=== PATIENT | female | born 1980 | race Caucasian/White ===

== ENCOUNTER 2017-10-18 15:30 | Outpatient (RCR) | payer BC ==
[2015-12-19 12:13] VITALS: Ht 165.1 cm; Wt 64.0 kg
[2017-07-26 15:44] VITALS: BP 108/76
[2017-07-26 15:44] LABS: PLATELET COUNT, AUTOMATED 241 K/uL (150-450)
[2017-08-02 16:06] VITALS: BP 115/78
--- NOTE | 2017-08-02 23:08 | ONCOLOGY FOLLOW UP NOTE ---
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 INTERIM HISTORY Leanna returns to clinic for a follow-up visit today. She reports that things having going quite well since our last visit. She has been working hard, staying active, eating well, and generally thriving. She reports no significant pain today. She denies fever. She has had no shortness of breath, chest pain, or cough. Her appetite is quite good, and her weight has been stable. She does admit that she may have gained a couple of pounds over the break. She does report that at times she has been massaging the abdominal incision, and there are times where if she "presses deep" she will feel some pain. She has noticed no masses. She has had no changes in her bowel habits. REVIEW OF SYSTEMS Otherwise negative, and all systems were reviewed. ONCOLOGY HISTORY 1. 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 a. Initial presentation with dysfunctional uterine bleeding after having had a healthy baby girl about one year prior. b. Patient was noted to have palpable pelvic mass on physical exam. c. November 04, 2016: CT scan of pelvis reveals an amorphous, ill defined, multiseptated cystic mass within the right adnexa, likely arising from the right ovary. This was initially felt to potentially represent a complex endometrioma. Surgery was recommended. d. Patient was referred to Dr. Mady Donovan at [facility] in [place]. e. November 23, 2016: Surgical resection. 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 Omentectomy specimen is negative for malignancy. Peritoneal biopsies to include right pelvic, left pelvic, anterior cul-de-sac, posterior cul-de-sac, right gutter and left gutter were negative for malignancy. There was biopsy of a left ovarian cyst that was benign. Left salpingectomy showed benign findings. Hysterectomy specimen showed chronic cervicitis and squamous metaplasia of the cervix, benign proliferative endometrium, and no pathologic findings in the myometrium. Six benign lymph nodes were dissected from the right pelvis, two benign lymph nodes were dissected from the periaortic region, and four benign lymph nodes were resected from the left pelvis. f. December 2016 to February 2017: Three cycles of adjuvant BEP chemotherapy. g. April 26, 2017: CT scan of the abdomen and pelvis reveals post surgical changes from hysterectomy and apparent right oophorectomy; very small amount of free pelvic fluid. Shotty retroperitoneal lymph nodes and small bilateral inguinal lymph nodes. PAST MEDICAL HISTORY The patient is otherwise healthy. SOCIAL HISTORY The patient is a nonsmoker, nondrinker. There is no history of illicit drug use. FAMILY HISTORY There is a history of vulvar carcinoma in her maternal aunt, as well as breast cancer in another maternal aunt. She believes this had been diagnosed about age 51. CURRENT MEDICATIONS 1. Iron sulfate. 2. Vitamin D3. 3. Flonase p.r.n. 4. Vitamin B6. ALLERGIES 1. PENICILLINS. 2. CEFACLOR. VITAL SIGNS Temperature is 98.3, blood pressure 115/78, heart rate is 80, respirations 16, oxygen saturation is 92% on room air. Weight is 65.2 kg. PHYSICAL EXAMINATION GENERAL: Patient is alert and oriented times three, in no apparent distress sitting in the exam room chair. She appears quite healthy. She is interactive , pleasant, and in excellent spirits. HEENT: Exam reveals anicteric sclerae. NEUROLOGIC: Exam is grossly nonfocal and her gait is normal. EXTREMITIES: Exam reveals no edema, clubbing or cyanosis. There ABDOMEN: Exam reveals no significant tenderness to palpation, no organomegaly, and no palpable masses. There is no fluid wave. LABORATORY STUDIES Reviewed per the [facility] record. ASSESSMENT AND PLAN 1. 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 Leanna is doing remarkably well. She has minimal symptoms today. She does have some very mild lingering peripheral neuropathy, but alternative therapies have been healing a great deal with this. She has no concerning signs or symptoms to suggest recurrence of her granulosa cell tumor. We reviewed her labs today. These are normal, including her estradiol and inhibin A and B levels. This is encouraging. As discussed today, we will continue to follow her with no plans for imaging unless new signs or symptoms arise to suggest the need. She will follow up with me in three months after repeat labs, to include tumor markers. 2. History of iron deficiency anemia. She continues to take iron sulfate. I have recommended that she go to the lab today to have repeat iron studies drawn. If she is iron replete she can stop her iron. I will be back in touch with her with the results of her labs. 3. Genetic counseling. Ivalene did have a visit with Joanne Tadeo, genetic counselor at the [facility]. Her genetic testing was unremarkable. She does have questions about reimbursement for some of the testing which was quite expensive. I have asked her to call Joanne to call this further, and if I can be of any assistance, I would be more than happy to help. WENDIE
[2017-10-16 13:17] VITALS: BP 124/77
[2017-10-16 13:22] LABS: PLATELET COUNT, AUTOMATED 249 K/uL (150-450)
[~2017-10-18] VITALS: Ht 165.1 cm; Wt 64.0 kg
[~2017-10-18 15:30] MED LIST: ACET-1718 PO; CHOL10005 PO; DEX4 PO; DOCU50LI29 PO; FERR-53 PO; FLUT16SP19 NS; IBUP800T37 PO; LEVO-85 PO; LORA-1455 PO; MULT-1335 PO; ONDA8TAB94 PO; PREN-127 PO; PROC10TA4 PO; PYRI100T57 PO
[2017-10-18 15:52] VITALS: BP 116/76
--- NOTE | 2017-10-19 17:29 | ONCOLOGY FOLLOW UP NOTE ---
EVENT DATE: October 18, 2017 REASON FOR FOLLOWUP Granulosus tumor of the right ovary. INTERIM HISTORY Leanna returns to clinic for a follow-up visit today. She is accompanied by her daughter. She reports that things are going quite well in general. She has returned to a very busy schedule. She is again playing volleyball, and going to the gym when she can. She reports that her nutrition has not been particularly good because of her busy schedule. She reports no new pain. She has had no changes in bowel habits, and no new urinary symptoms. She has had no shortness of breath, chest pain, or cough. Her appetite is good. She has had labs drawn, and she is here to review the results. REVIEW OF SYSTEMS Otherwise negative, and all systems were reviewed. ONCOLOGY HISTORY 1. 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 a. Initial presentation with dysfunctional uterine bleeding after having had a healthy baby girl about one year prior. b. Patient was noted to have palpable pelvic mass on physical exam. c. November 04, 2016: CT scan of pelvis reveals an amorphous, ill defined, multiseptated cystic mass within the right adnexa, likely arising from the right ovary. This was initially felt to potentially represent a complex endometrioma. Surgery was recommended. d. Patient was referred to Dr. Mady Donovan at [facility] in [place]. e. November 23, 2016: Surgical resection. 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 Omentectomy specimen is negative for malignancy. Peritoneal biopsies to include right pelvic, left pelvic, anterior cul-de-sac, posterior cul-de-sac, right gutter and left gutter were negative for malignancy. There was biopsy of a left ovarian cyst that was benign. Left salpingectomy showed benign findings. Hysterectomy specimen showed chronic cervicitis and squamous metaplasia of the cervix, benign proliferative endometrium, and no pathologic findings in the myometrium. Six benign lymph nodes were dissected from the right pelvis, two benign lymph nodes were dissected from the periaortic region, and four benign lymph nodes were resected from the left pelvis. f. December 2016 to February 2017: Three cycles of adjuvant BEP chemotherapy. g. April 26, 2017: CT scan of the abdomen and pelvis reveals post surgical changes from hysterectomy and apparent right oophorectomy; very small amount of free pelvic fluid. Shotty retroperitoneal lymph nodes and small bilateral inguinal lymph nodes. PAST MEDICAL HISTORY The patient is otherwise healthy. SOCIAL HISTORY The patient is a nonsmoker, nondrinker. There is no history of illicit drug use. FAMILY HISTORY There is a history of vulvar carcinoma in her maternal aunt, as well as breast cancer in another maternal aunt. She believes this had been diagnosed about age 51. CURRENT MEDICATIONS 1. Vitamin D3. 2. Flonase p.r.n. 3. Vitamin B6. ALLERGIES 1. PENICILLINS. 2. CEFACLOR. VITAL SIGNS Temperature is 97.4, blood pressure 116/76, heart rate is 73, respirations 16, oxygen saturation is 96% on room air. Weight is 64 kg. PHYSICAL EXAMINATION GENERAL: Patient is alert and oriented times three, in no apparent distress sitting in the exam room chair. She appears quite healthy. She is interactive and pleasant. HEENT: Exam reveals anicteric sclerae. NEUROLOGIC: Exam is grossly nonfocal and her gait is normal. SKIN: Exam reveals no concerning rash or lesions. She has a new tattoo in the right lower quadrant. LABORATORY STUDIES Reviewed per the [facility] record. ASSESSMENT AND PLAN 1. Granulosus cell tumor of right ovary, status post resection and adjuvant chemotherapy. Ivalene continues to do very well from a symptom standpoint. She has no concerning signs or symptoms to suggest recurrence of her granulosus cell tumor. We spent time today reviewing her laboratory studies, and these are unremarkable, including estradiol. Inhibin levels are currently pending. We also moved on to discuss the importance of regular physical activity, which she seems to be doing quite well concerning her busy schedule. Her nutrition is not particularly good, however, and I have encouraged her to do the best she can in this regard. We discussed our strategy moving forward for followup. We will hold off on additional imaging at this time, for lack of symptoms. I would like to see her back in three months' time after repeat labs to include CBC, CMP, estradiol level, and inhibin A and B. She agrees with this plan. 2. History of iron deficiency anemia. Her labs reveal no evidence of ongoing iron deficiency. She can stop her iron. MTDD
== END 2017-10-24 ==
LOC: ONC 15:30
PROVIDERS: ATTEND Internal Medicine Medical Oncology
DX: Z85.43 Personal history of malignant neoplasm of ovary (principal); Z92.21 Personal history of antineoplastic chemotherapy; G62.9 Polyneuropathy, unspecified; D50.9 Iron deficiency anemia, unspecified
CPT/HCPCS: 36415; 82040; 82247; 82310; 82374; 82435; 82565; 82670; 82728; 82947; 83520; 83540; 83550; 83735; 84075; 84100; 84132; 84155; 84295; 84450; 84460; 84520; 85025; 86336; 99212

== ENCOUNTER 2017-12-31 20:56 | Observation (INO) | payer BC ==
[2015-12-19 12:13] VITALS: Ht 160 cm; Wt 65.0 kg
[~2017-12-31] VITALS: Ht 160 cm; Wt 65.0 kg
--- NOTE | 2017-12-31 21:19 | ER Report ---
History and Physical Time Seen By MD: 21:18 Hx. of Stated Complaint: LLQ pain that started this am, has hx of R ovarian ca and had salpingoopherectomy last summer but did leave L ovary HPI/ROS CHIEF COMPLAINT: abdominal pain HISTORY OF PRESENT ILLNESS: This is a 37 year old female. She is having lower left abdominal pain since earlier this morning. Pain worsens with movement. She had been camping and thought she might just be having pain from bowels being backed up or gas pains. She did have a bowel movement but did not improve the pain. No problems with urination. She has no fevers or chills. 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 Mady Donovan at [facility] and since has completed 3 cycles of BEP. She had a CT scan in April for follow-up which was negative. Denies vomiting, but having some nausea. Pain is severe, rated 8 on a 1-10 scale. Allergies: Coded Allergies: Penicillins (Verified Allergy, Intermediate, HIVES, 12/31/17) REPORTS HAVING BEEN TOLD OF REACTION CHILD, SOMEWHAT UNSURE OF REACTION. amoxicillin (Verified Allergy, Intermediate, HIVES, 12/31/17) cefaclor (Verified Allergy, Intermediate, HIVES, 12/31/17) Home Meds Discontinued Reported Medications Multivitamin With Minerals (MULTIPLE VITAMIN) 1 Each Tablet, 1 EACH PO DAILY, TAB 04/10/17 Cholecalciferol (Vitamin D3) (VITAMIN D3) 1,000 Unit Tablet, 1000 UNIT PO DAILY , TAB 04/10/17 Docusate Sodium (STOOL SOFTENER) 50 Mg/5 Ml Liquid, 50 MG PO PRN 12/14/16 Discontinued Scripts Ferrous Sulfate (FERROUS SULFATE) 325 Mg Tablet, 325 MG PO TID for 30 Days, #90 TAB 3 Refills Prov:TRISH MISHRA-BC, ONC 06/07/17 Fluticasone Prop 50 Mcg Ns (FLONASE 50 MCG NS) 16 Gm [place].susp, 1 SPRAY NS BID for 30 Days, #1 BOT 2 Refills Prov:TRISH MISHRA-BC, ONC 02/27/17 Pyridoxine Hcl (VITAMIN B-6) 100 Mg Tablet, 100 MG PO BID for neuropathy prevention, #60 TAB 4 Refills Prov:TRISH MISHRA-BC, ONC 02/24/17 Prochlorperazine Maleate (Compazine) 10 Mg Tablet, 10 MG PO Q6H for Nausea, #30 TAB Prov:TRISH MISHRA TELECOM ANALYST-BC, ONC 01/30/17 Lorazepam (ATIVAN) 0.5 Mg Tablet, 0.5 MG PO Q4-6H Y for NAUSEA for 30 Days, #30 TAB 0 Refills Prov:TRISH MISHRA TELECOM ANALYST-BC, ONC 12/27/16 Ondansetron (ZOFRAN ODT) 8 Mg Tab.rapdis, 8 MG PO Q8H, #30 TAB 1 Refill Prov:TRISH MISHRA TELECOM ANALYST-BC, ONC 12/27/16 Ibuprofen (IBUPROFEN) 800 Mg Tablet, 1 TAB PO Q8H, #30 TAB Take with food every 8 hours. Prov:BENIGNO LAMBERT MD 12/19/15 Reviewed Nurses Notes: Yes Hx Smoking: No Smoking Status: Never Smoker Exposure to Second Hand Smoke?: No Hx Substance Use Disorder: No Hx Alcohol Use: No Constitutional Vital Sign - Last 24 Hours 12/31/17 12/31/17 12/31/17 12/31/17 20:56 21:05 21:06 21:11 Temp 97.8 Pulse ??? 74 74 Resp 16 B/P (MAP) 130/93 (105) 130/93 Pulse Ox 96 94 12/31/17 12/31/17 12/31/17 12/31/17 21:30 21:41 21:56 22:00 Pulse 66 69 B/P (MAP) 122/83 (96) 114/74 (87) Pulse Ox 95 93 12/31/17 12/31/17 12/31/17 12/31/17 22:05 22:36 22:41 22:56 Pulse 63 65 63 B/P (MAP) 120/81 (94) Pulse Ox 93 90 91 12/31/17 12/31/17 12/31/17 12/31/17 23:00 23:30 23:41 23:46 Pulse 60 62 B/P (MAP) 112/65 (81) 129/84 (99) Pulse Ox 98 98 01/01/18 01/01/18 01/01/18 01/01/18 00:00 00:01 00:06 00:11 Pulse 63 67 72 B/P (MAP) 117/78 (91) Pulse Ox 94 95 01/01/18 01/01/18 01/01/18 01/01/18 00:30 00:56 00:57 01:02 Pulse 74 66 B/P (MAP) 124/80 (95) Pulse Ox 97 97 98 01/01/18 01/01/18 01/01/18 01/01/18 01:07 01:22 01:27 01:30 Pulse 75 78 72 B/P (MAP) 107/58 (74) Pulse Ox 99 95 91 01/01/18 01/01/18 01/01/18 01/01/18 01:42 02:00 02:05 02:17 Pulse 73 64 68 B/P (MAP) 117/82 (94) Pulse Ox 98 99 99 01/01/18 01/01/18 01/01/18 01/01/18 02:22 02:30 02:37 02:42 Pulse 77 66 73 B/P (MAP) 124/83 (97) Pulse Ox 99 92 96 Physical Exam General Appearance: The patient is alert. No acute distress. Eyes: Pupils are equal, round. No pallor, injection or icterus Respiratory: Breathing easily and unlabored. Lungs are clear to auscultation. Cardiovascular: Regular rate and rhythm. No murmurs, gallops or rubs. Normal capillary refill. Gastrointestinal: Abdomen is soft, but very tender in left lower abdomen. Nondistended. Guarding, no rebound. Normal active bowel sounds. No costovertebral angle tenderness with percussion. Neurological: Alert and oriented x3. No focal neurologic deficits in the extremities. Skin: Warm and dry. No rashes. DIFFERENTIAL DIAGNOSIS: After history and physical exam, differential diagnosis was considered for abdominal pain in a female including but not limited to ovarian cyst, pelvic inflammatory disease, ovarian torsion, urinary tract infection, colitis. Medical Decision Making Data Points Result Diagram: 12/31/17214612/31/172146 Laboratory Hematology Test 12/31/17 21:47 12/31/17 22:36 Red Blood Count 5.14 M/uL (4.17-5.56) Mean Corpuscular Volume 85.4 fL (80.0-96.0) Mean Corpuscular Hemoglobin 28.9 pg (26.0-33.0) Mean Corpuscular Hemoglobin Concent 33.9 g/dL (32.0-36.0) Red Cell Distribution Width 13.7 % (11.5-14.5) Mean Platelet Volume 8.6 fL (7.2-11.1) Neutrophils (%) (Auto) 78.1 % (39.4-72.5) Lymphocytes (%) (Auto) 16.0 % (17.6-49.6) Monocytes (%) (Auto) 5.3 % (4.1-12.4) Eosinophils (%) (Auto) 0.2 % (0.4-6.7) Basophils (%) (Auto) 0.4 % (0.3-1.4) Nucleated RBC Relative Count (auto) 0.1 /100WBC Neutrophils # (Auto) 8.9 K/uL (2.0-7.4) Lymphocytes # (Auto) 1.8 K/uL (1.3-3.6) Monocytes # (Auto) 0.6 K/uL (0.3-1.0) Eosinophils # (Auto) 0.0 K/uL (0.0-0.5) Basophils # (Auto) 0.0 K/uL (0.0-0.1) Nucleated RBC Absolute Count (auto) 0.01 K/uL Sodium Level 140 mmol/L (137-145) Potassium Level 3.5 mmol/L (3.5-5.0) Chloride Level 105 mmol/L (98-107) Carbon Dioxide Level 21 mmol/L (22-31) Blood Urea Nitrogen 19 mg/dl (7-18) Creatinine 0.90 mg/dl (0.52-1.04) Glomerular Filtration Rate Calc > 60.0 Random Glucose 137 mg/dl (75-110) Calcium Level 8.9 mg/dl (8.4-10.2) Total Bilirubin 0.2 mg/dl (0.2-1.3) Aspartate Amino Transf (AST/SGOT) 20 U/L (0-35) Alanine Aminotransferase (ALT/SGPT) 20 U/L (0-56) Alkaline Phosphatase 61 U/L (0-126) C-Reactive Protein < 0.5 mg/dl (<1.0) Total Protein 7.6 gm/dl (6.3-8.2) Albumin 4.4 g/dl (3.5-5.0) Amylase Level 89 U/L (0-110) Lipase 81 U/L (23-300) Urine Color Yellow Urine Clarity Slightly-cloudy Urine pH 7.0 pH (4.8-9.5) Urine Specific [place] 1.034 Urine Protein Negative mg/dL (NEGATIVE) Urine Glucose (UA) Negative mg/dL (NEGATIVE) Urine Ketones Negative mg/dL (NEGATIVE) Urine Blood Negative (NEGATIVE) Urine Nitrite Negative (NEGATIVE) Urine Bilirubin Negative (NEGATIVE) Urine Urobilinogen Negative mg/dL (0.2-1.9) Urine Leukocyte Esterase Negative (NEGATIVE) Urine RBC None /HPF (0-2/HPF) Urine WBC None /HPF (0-5/HPF) Urine Squamous Epithelial Cells Few /LPF (</=FEW) Urine Amorphous Crystals Many /HPF Urine Bacteria Negative /HPF (NONE-FEW) Urine Mucus None /HPF (NONE-FEW) Chemistry Test 12/31/17 21:47 12/31/17 22:36 White Blood Count 11.3 k/uL (4.5-11.0) Red Blood Count 5.14 M/uL (4.17-5.56) Hemoglobin 14.9 g/dL (12.0-16.0) Hematocrit 43.8 % (34.0-47.0) Mean Corpuscular Volume 85.4 fL (80.0-96.0) Mean Corpuscular Hemoglobin 28.9 pg (26.0-33.0) Mean Corpuscular Hemoglobin Concent 33.9 g/dL (32.0-36.0) Red Cell Distribution Width 13.7 % (11.5-14.5) Platelet Count 220 K/uL (150-450) Mean Platelet Volume 8.6 fL (7.2-11.1) Neutrophils (%) (Auto) 78.1 % (39.4-72.5) Lymphocytes (%) (Auto) 16.0 % (17.6-49.6) Monocytes (%) (Auto) 5.3 % (4.1-12.4) Eosinophils (%) (Auto) 0.2 % (0.4-6.7) Basophils (%) (Auto) 0.4 % (0.3-1.4) Nucleated RBC Relative Count (auto) 0.1 /100WBC Neutrophils # (Auto) 8.9 K/uL (2.0-7.4) Lymphocytes # (Auto) 1.8 K/uL (1.3-3.6) Monocytes # (Auto) 0.6 K/uL (0.3-1.0) Eosinophils # (Auto) 0.0 K/uL (0.0-0.5) Basophils # (Auto) 0.0 K/uL (0.0-0.1) Nucleated RBC Absolute Count (auto) 0.01 K/uL Glomerular Filtration Rate Calc > 60.0 Calcium Level 8.9 mg/dl (8.4-10.2) Total Bilirubin 0.2 mg/dl (0.2-1.3) Aspartate Amino Transf (AST/SGOT) 20 U/L (0-35) Alanine Aminotransferase (ALT/SGPT) 20 U/L (0-56) Alkaline Phosphatase 61 U/L (0-126) C-Reactive Protein < 0.5 mg/dl (<1.0) Total Protein 7.6 gm/dl (6.3-8.2) Albumin 4.4 g/dl (3.5-5.0) Amylase Level 89 U/L (0-110) Lipase 81 U/L (23-300) Urine Color Yellow Urine Clarity Slightly-cloudy Urine pH 7.0 pH (4.8-9.5) Urine Specific [place] 1.034 Urine Protein Negative mg/dL (NEGATIVE) Urine Glucose (UA) Negative mg/dL (NEGATIVE) Urine Ketones Negative mg/dL (NEGATIVE) Urine Blood Negative (NEGATIVE) Urine Nitrite Negative (NEGATIVE) Urine Bilirubin Negative (NEGATIVE) Urine Urobilinogen Negative mg/dL (0.2-1.9) Urine Leukocyte Esterase Negative (NEGATIVE) Urine RBC None /HPF (0-2/HPF) Urine WBC None /HPF (0-5/HPF) Urine Squamous Epithelial Cells Few /LPF (</=FEW) Urine Amorphous Crystals Many /HPF Urine Bacteria Negative /HPF (NONE-FEW) Urine Mucus None /HPF (NONE-FEW) Urinalysis Test 12/31/17 22:36 Urine Color Yellow Urine Clarity Slightly-cloudy Urine pH 7.0 pH (4.8-9.5) Urine Specific [place] 1.034 Urine Protein Negative mg/dL (NEGATIVE) Urine Glucose (UA) Negative mg/dL (NEGATIVE) Urine Ketones Negative mg/dL (NEGATIVE) Urine Blood Negative (NEGATIVE) Urine Nitrite Negative (NEGATIVE) Urine Bilirubin Negative (NEGATIVE) Urine Urobilinogen Negative mg/dL (0.2-1.9) Urine Leukocyte Esterase Negative (NEGATIVE) Urine RBC None /HPF (0-2/HPF) Urine WBC None /HPF (0-5/HPF) Urine Squamous Epithelial Cells Few /LPF (</=FEW) Urine Amorphous Crystals Many /HPF Urine Bacteria Negative /HPF (NONE-FEW) Urine Mucus None /HPF (NONE-FEW) EKG/Imaging Imaging EXAMINATION: CT Abdomen and Pelvis With Contrast 12/31/2017 9:25 PM HISTORY: Left lower quadrant pain TECHNIQUE: Spiral scan was through the abdomen and pelvis during injection of nonionic iodinated intravenous contrast. Contrast: 75 mL of IV Isovue 370. One of the following dose optimization techniques was utilized in the performance of this exam: Automated exposure control; adjustment of the mA and/ or kV according to the patient's size; or use of an iterative reconstruction technique. Specific details can be referenced in the facility's radiology CT exam operational policy. COMPARISON STUDIES: 04/26/2017. FINDINGS: Liver / biliary: Trace periportal edema which typically is secondary to IV fluid administration ER. No significant acute finding otherwise. Pancreas: negative Spleen: negative Adrenal glands: negative Kidneys / retroperitoneum: Negative. No kidney stone or obstruction. No enhancement features of pyelonephritis/UTI. Pelvic structures: Prior hysterectomy and I believe right oophorectomy. No cystic left ovarian or adnexal structure measures 6.2 x 5.3 x 7.8 cm and has a somewhat thick internal septation. Tissue along the septation in the lateral aspect of the structure does appear to enhance which argue against torsion. No adnexal pathology evident on the right. Bowel / peritoneum / mesenteries: Negative. No colitis or significant diverticular change. Normal appendix. Vessels: negative Musculoskeletal / Body wall: negative Lymph node assessment: negative Lower chest: negative IMPRESSION: 1. Complicated 7.8 cm left ovarian or adnexal cystic structure with at least one somewhat thickened internal septation. Enhancement of tissue argues against torsion. Short-term 3 month follow-up ultrasound is recommended to see if this is a benign functional cyst which resolves or if this is a persistent cystic structure of concern. 2. No significant acute finding otherwise. Report Dictated By: Marcio Carter MD at 12/31/2017 10:39 PM TRANSVAGINAL NON-OB HISTORY: Left ovarian cyst. Left lower quadrant pain COMPARISON: CT abdomen pelvis earlier same day and 04/26/2017. Previous pelvic MR 11/04/2016. TECHNIQUE: Transvaginal ultrasound pelvis. Grayscale, color flow Doppler and spectral Doppler were performed. FINDINGS: Uterus: Surgically absent. Ovaries and adnexa: Right: The right ovary is surgically absent. The right adnexum is normal. Left: In the left adnexum, there is a complex cyst containing linear internal echoes and a thick septation that measures 9 mm in thickness, versus 2 adjacent cysts with interposed ovarian tissue. In total, the cyst or cysts measure(s) 4.3 x 7.6 x 4.8 cm. There is minimal vascular flow within the septation/interposed ovarian tissue. Other than this tissue/thick septation, no normal ovarian tissue is visible. The left adnexum is normal. Free pelvic fluid: None. IMPRESSION: 1. The uterus and right ovary are surgically absent. 2. There is a complex cystic lesion in the left adnexum, presumed to be arising from the left ovary, although normal ovarian tissue is not visible. There is a thick septation within this cyst versus interposed ovarian tissue between the 2 cysts. In total, the cystic lesion measures 7.6 cm maximal diameter. The large size of the lesion does put the patient at risk for ovarian torsion, and the minimal vascular flow within the thick septation/interposed ovarian tissue does not exclude torsion. Given the patient's pelvic and left lower quadrant pain as well as the complex appearance and size of the lesion, surgical consult is recommended. These findings were discussed by phone with DB CORTES on 01/01/2018 12:05 PM. Report Dictated By: Beverley Persaud at 12/31/2017 11:53 PM ED Course/Re-evaluation Clinical Indication for ER IV: Hydration, IV Access ED Course After the initial history and physical exam, the patient had an IV started and given Morphine 4mg IV, Zofran 4mg IV, and a liter of normal saline. Minimal pain relief. Repeat Morphine 4mg IV. Had CT scan that showed a left ovarian mass as noted above. Ultrasound done which showed the mass as well. Question of intermittent torsion based on blush on CT scan, but no flow on ultrasound. After ultrasound, still with significant pain, and given Dilaudid 1mg IV with better pain control. Discussed the case with Dr. Mehta, who came in to see the patient. They will be admitting for observation and planning on either surgery with Dr. Donovan in [place] or doing it here later today. Decision to Disposition Date: Jan 01, 2018 Decision to Disposition Time: 02:12 Depart Departure Latest Vital Signs Vital Signs Date Time Temp Pulse Resp B/P (MAP) Pulse Ox O2 Delivery O2 Flow Rate FiO2 01/01/18 02:42 73 96 01/01/18 02:30 124/83 (97) 12/31/17 21:06 97.8 16 Impression: Primary Impression: Ovarian mass, left Additional Impression: Abdominal pain Condition: Improved Disposition: Admitted from ER Referrals: BENIGNO LAMBERT MD (PCP) New Scripts No Active Prescriptions or Reported Meds Problem Qualifiers Additional Impression: Abdominal pain Abdominal location: left lower quadrant Qualified Codes: R10.32 - Left lower quadrant pain DB CORTES MD Dec 31, 2017 21:19
[2017-12-31] MEDS ORDERED: MORPHINE 4 MG/ML SDV IVP ONE ×2 (21:25→22:50)
[2017-12-31] MEDS ORDERED: ONDANSETRON 4 MG/2 ML VIAL IVP ONE (21:25)
[2017-12-31] MEDS ORDERED: NS(*) 0.9% 1000 ML BAG 1,000 ML IV ONE (21:25)
[2017-12-31] MEDS ORDERED: IOPAMIDOL 76% 75 ML INFUS BTL 75 ML ONE (21:39)
[2017-12-31 21:54] LABS: PLATELET COUNT, AUTOMATED 220 K/uL (150-450)
--- NOTE | 2017-12-31 22:51 | RADIOLOGY IMAGING REPORT ---
FACILITY: [facility] PATIENT NAME: Leanna Pettit : 1980 MR: [id number] V: [id number] EXAM DATE: ORDERING PHYSICIAN: DB CORTES TECHNOLOGIST: Location: [facility] Patient: Leanna Pettit : 1980 Visit/Account:[id number] Date of Sevice: 12/31/2017 EXAMINATION: CT Abdomen and Pelvis With Contrast 12/31/2017 9:25 PM HISTORY: Left lower quadrant pain TECHNIQUE: Spiral scan was through the abdomen and pelvis during injection of nonionic iodinated in travenous contrast. Contrast: 75 mL of IV Isovue 370. One of the following dose optimization techniques was utilized in the performance of this exam: Autom ated exposure control; adjustment of the mA and/or kV according to the patient's size; or use of an i terative reconstruction technique. Specific details can be referenced in the facility's radiology C T exam operational policy. COMPARISON STUDIES: 04/26/2017. FINDINGS: Liver / biliary: Trace periportal edema which typically is secondary to IV fluid administration ER. N o significant acute finding otherwise. Pancreas: negative Spleen: negative Adrenal glands: negative Kidneys / retroperitoneum: Negative. No kidney stone or obstruction. No enhancement features of pyelo nephritis/UTI. Pelvic structures: Prior hysterectomy and I believe right oophorectomy. No cystic left ovarian or adnexal structure measures 6.2 x 5.3 x 7.8 cm and has a somewhat thick internal septation. Tissue yvette ng the septation in the lateral aspect of the structure does appear to enhance which argue against to rsion. No adnexal pathology evident on the right. Bowel / peritoneum / mesenteries: Negative. No colitis or significant diverticular change. Normal olu endix. Vessels: negative Musculoskeletal / Body wall: negative Lymph node assessment: negative Lower chest: negative IMPRESSION: 1. Complicated 7.8 cm left ovarian or adnexal cystic structure with at least one somewhat thickened i nternal septation. Enhancement of tissue argues against torsion. Short-term 3 month follow-up ultraso und is recommended to see if this is a benign functional cyst which resolves or if this is a persiste nt cystic structure of concern. 2. No significant acute finding otherwise. Report Dictated By: Marcio Carter MD at 12/31/2017 10:39 PM Report E-Signed By: Marcio Carter MD at 12/31/2017 10:46 PM WSN:[id number]
[2018-01-01] MEDS ORDERED: HYDROmorphone* 1 MG/ML 1 MG/ML ML IVP ONE
--- NOTE | 2018-01-01 00:16 | RADIOLOGY IMAGING REPORT ---
FACILITY: [facility] PATIENT NAME: Leanna Pettit : 1980 MR: [id number] V: [id number] EXAM DATE: ORDERING PHYSICIAN: DB CORTES TECHNOLOGIST: Location: [facility] Patient: Leanna Pettit : 1980 Visit/Account:[id number] Date of Sevice: 12/31/2017 TRANSVAGINAL NON-OB HISTORY: Left ovarian cyst. Left lower quadrant pain COMPARISON: CT abdomen pelvis earlier same day and 04/26/2017. Previous pelvic MR 11/04/2016. TECHNIQUE: Transvaginal ultrasound pelvis. Grayscale, color flow Doppler and spectral Doppler were p erformed. FINDINGS: Uterus: Surgically absent. Ovaries and adnexa: Right: The right ovary is surgically absent. The right adnexum is normal. Left: In the left adnexum, there is a complex cyst containing linear internal echoes and a thic k septation that measures 9 mm in thickness, versus 2 adjacent cysts with interposed ovarian tissue. In total, the cyst or cysts measure(s) 4.3 x 7.6 x 4.8 cm. There is minimal vascular flow within the septation/interposed ovarian tissue. Other than this tissue/thick septation, no normal ovarian tissue is visible. The left adnexum is normal. Free pelvic fluid: None. IMPRESSION: 1. The uterus and right ovary are surgically absent. 2. There is a complex cystic lesion in the left adnexum, presumed to be arising from the left ovary, although normal ovarian tissue is not visible. There is a thick septation within this cyst versus int erposed ovarian tissue between the 2 cysts. In total, the cystic lesion measures 7.[address] The large size of the lesion does put the patient at risk for ovarian torsion, and the minimal v ascular flow within the thick septation/interposed ovarian tissue does not exclude torsion. Given the patient's pelvic and left lower quadrant pain as well as the complex appearance and size of the lesi on, surgical consult is recommended. These findings were discussed by phone with DB CORTES on 01/01/2018 12:05 PM. Report Dictated By: Beverley Persaud at 12/31/2017 11:53 PM Report E-Signed By: Beverley Persaud at 01/01/2018 12:12 AM WSN:[id number]
--- NOTE | 2018-01-01 03:07 | History & Physical ---
History of Present Illness Age of Patient: 37 : 2 Para or TPAL: 2 Chief Complaint Abdominal Pain. History of Present Illness Pt is 37 y/o multigravida female who presents number sperm with a chief complaint of abdominal pain. Patient reports about a pain for the last month. Patient reports of abdominal pain is now excruciating for the past 24 hours. Reports pain is mostly constant but does get some relief that is positional. Denies any fevers or chills. Denies any recent illness. Patient reports nausea with pain. Patient was given 4 mg of morphine in the emergency department with minimal improvement of symptoms. Patient also received 1 mg of Dilaudid with resolution of symptoms and was comfortable for 2 hours. Patient has a known history of granulosa cell tumor that did require a staging procedure with hysterectomy right salpingo-oophorectomy with left ovarian conservation. Patient was diagnosed with stage IC 1 granulosa cell tumor and underwent adjuvant BEP therapy. Patient would be evaluated for 1 year survivorship on today's date 01/01/2018. History Obstetrical History: 2 living children. 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 Patient did undergo adjuvant BEP therapy. She would be one-year cancer free on 01/01/2018. Patient did undergo surgery by Dr. Carine Donovan at [facility]. Chemotherapy was performed in [place], [place]. 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 amoxicillin (Verified Allergy, Intermediate, HIVES, 12/31/17) cefaclor (Verified Allergy, Intermediate, HIVES, 12/31/17) Social History: Occasional social alcohol. Denies use of recreational drugs or alcohol. Med Rec Home Meds Discontinued Reported Medications Multivitamin With Minerals (MULTIPLE VITAMIN) 1 Each Tablet, 1 EACH PO DAILY, TAB 04/10/17 Cholecalciferol (Vitamin D3) (VITAMIN D3) 1,000 Unit Tablet, 1000 UNIT PO DAILY , TAB 04/10/17 Docusate Sodium (STOOL SOFTENER) 50 Mg/5 Ml Liquid, 50 MG PO PRN 12/14/16 Discontinued Scripts Ferrous Sulfate (FERROUS SULFATE) 325 Mg Tablet, 325 MG PO TID for 30 Days, #90 TAB 3 Refills Prov:TRISH MISHRA [facility], ONC 06/07/17 Fluticasone Prop 50 Mcg Ns (FLONASE 50 MCG NS) 16 Gm [place].susp, 1 SPRAY NS BID for 30 Days, #1 BOT 2 Refills Prov:TRISH MISHRA [facility]-, ONC 02/27/17 Pyridoxine Hcl (VITAMIN B-6) 100 Mg Tablet, 100 MG PO BID for neuropathy prevention, #60 TAB 4 Refills Prov:TADTRISH Jonathan [facility], ONC 02/24/17 Prochlorperazine Maleate (Compazine) 10 Mg Tablet, 10 MG PO Q6H for Nausea, #30 TAB Prov:TADTRISH J [facility], ONC 01/30/17 Lorazepam (ATIVAN) 0.5 Mg Tablet, 0.5 MG PO Q4-6H Y for NAUSEA for 30 Days, #30 TAB 0 Refills Prov:TADTRISH J [facility], ONC 12/27/16 Ondansetron (ZOFRAN ODT) 8 Mg Tab.rapdis, 8 MG PO Q8H, #30 TAB 1 Refill Prov:TADDIVYA BUSBYPASCUAL Castillo [facility], ONC 12/27/16 Ibuprofen (IBUPROFEN) 800 Mg Tablet, 1 TAB PO Q8H, #30 TAB Take with food every 8 hours. Prov:BENIGNO LAMBERT MD 12/19/15 Review of Systems All Systems Reviewed/Normal: Yes, Except as Noted Constitutional: No Fever, No Weight Loss, No Weight Gain, No Chills, No Night Sweats, No Other Neurological: No Syncope, No Confusion, No Weakness, No Dizziness, No Slurred Speech, No Other Eyes: No Vision Change, No Loss of Vision, No Photophobia, No Other ENT: No Hearing Loss, No Sinus Congestion, No Sore Throat, No Ear Ache, No Tinnitus, No Other Cardiovascular: No Chest Pain, No Palpitations, No Orthostatic Hypotension, No Other Respiratory: No Shortness of Breath, No Cough, No Wheezing, No Other Gastrointestinal: Nausea, Abdominal Pain Genitourinary: No Dysuria, No Hematuria, No Urinary Incontinence, No Other Musculoskeletal: No Pain, No Sprain, No Strain, No Impaired Mobility, No Other Psychiatric: No Depression, No Anxiety, No Other Exam General Exam Vital Signs Vital Signs Date Time Temp Pulse Resp B/P (MAP) Pulse Ox O2 Delivery O2 Flow Rate FiO2 01/01/18 02:17 68 99 01/01/18 02:00 117/82 (94) 12/31/17 21:06 97.8 16 General Apperance: Alert/Awake/No Acute Distress Neuro: No Gross deficits Eyes: Normal Extraocular Movement & Vison, PERRLA ENT: Normal Cardiovascular: Regular Rate and Rhythm Respiratory: No Respiratory Distress Abdomen: Other (tender in left lower quadrant. Some guarding but negative rebound. 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 (2) Ovarian mass, left Status: Acute Assessment & Plan: With ultrasound and CT findings as below patient was examined and found to be tender in the left lower quadrant with with guarding and no rebound. With patient's history of granulosa cell tumor with staging procedure and adjuvant chemotherapy and ovarian conservation the ultrasound and CT findings are significant for the possibility of recurrent granulosa cell tumor or the possibility of a primary ovarian mass of different origin. Because of patient's cyst and surgical history the gynecological oncologist at [place] [facility] consulted to discuss possible care and management. I spoke with Dr. Bassett who gave the possible treatment options to include 1 operating hear in [place] and do oophorectomy and primary survey of the abdomen to rule out any other disease in the belly. 2. See if there is a possibility of adding patient to Dr. Donovan operating schedule on Monday keeping patient comfortable until then and arranging self transport to [place]. If procedure was done in [place] it was recommended to do peritoneal washings oophorectomy using prior laparotomy incision and dictating in the significant findings inside the abdomen. As these findings would dictate the type and duration of chemotherapy the patient would require postoperatively. The options were given to the patient and discussed possible treatment choices and she desires to be admitted for pain control and once Dr. Donovan's office is open see if she could be added to the schedule for Monday or as soon as possible. If not available Monday or Monday patient would opt to have procedure done here in [place] and follow up accordingly with Dr. Donovan as well as her hem- oncologist. Will admit patient for pain control patient to remain nothing by mouth except with medications. Ultrasound findings: FINDINGS: Uterus: Surgically absent. Ovaries and adnexa: Right: The right ovary is surgically absent. The right adnexum is normal. Left: In the left adnexum, there is a complex cyst containing linear internal echoes and a thick septation that measures 9 mm in thickness, versus 2 adjacent cysts with interposed ovarian tissue. In total, the cyst or cysts measure(s) 4.3 x 7.6 x 4.8 cm. There is minimal vascular flow within the septation/interposed ovarian tissue. Other than this tissue/thick septation, no normal ovarian tissue is visible. The left adnexum is normal. Free pelvic fluid: None. IMPRESSION: 1. The uterus and right ovary are surgically absent. 2. There is a complex cystic lesion in the left adnexum, presumed to be arising from the left ovary, although normal ovarian tissue is not visible. There is a thick septation within this cyst versus interposed ovarian tissue between the 2 cysts. In total, the cystic lesion measures 7.6 cm maximal diameter. The large size of the lesion does put the patient at risk for ovarian torsion, and the minimal vascular flow within the thick septation/interposed ovarian tissue does not exclude torsion. Given the patient's pelvic and left lower quadrant pain as well as the complex appearance and size of the lesion, surgical consult is recommended CT findings:iver / biliary: Trace periportal edema which typically is secondary to IV fluid administration ER. No significant acute finding otherwise. Pancreas: negative Spleen: negative Adrenal glands: negative Kidneys / retroperitoneum: Negative. No kidney stone or obstruction. No enhancement features of pyelonephritis/UTI. Pelvic structures: Prior hysterectomy and I believe right oophorectomy. No cystic left ovarian or adnexal structure measures 6.2 x 5.3 x 7.8 cm and has a somewhat thick internal septation. Tissue along the septation in the lateral aspect of the structure does appear to enhance which argue against torsion. No adnexal pathology evident on the right. Bowel / peritoneum / mesenteries: Negative. No colitis or significant diverticular change. Normal appendix. Vessels: negative Musculoskeletal / Body wall: negative Lymph node assessment: negative Lower chest: negative IMPRESSION: 1. Complicated 7.8 cm left ovarian or adnexal cystic structure with at least one somewhat thickened internal septation. Enhancement of tissue argues against torsion. Short-term 3 month follow-up ultrasound is recommended to see if this is a benign functional cyst which resolves or if this is a persistent cystic structure of concern. 2. No significant acute finding otherwise. Problem Qualifiers (1) Abdominal pain: Abdominal location: left lower quadrant Qualified Codes: R10.32 - Left lower quadrant pain ROSEANNA CELAYA DO Jan 01, 2018 02:57
[2018-01-01] MEDS ORDERED: ZOLPIDEM TARTRATE 10 MG TAB PO PRN (03:10)
[2018-01-01] MEDS ORDERED: INFLUENZA VIRUS VAC 0.5 ML SYR IM ONE (03:10)
[2018-01-01] MEDS ORDERED: HYDROmorphone HCL 2 MG/ML SDV IVP PRN (03:10)
[2018-01-01] MEDS ORDERED: ACETAMINOPHEN 325 MG TAB PO PRN (03:10)
[2018-01-01] MEDS ORDERED: SIMETHICONE 80 MG CHEW CHEW PRN (03:10)
[2018-01-01] MEDS ORDERED: PROMETHAZINE 25 MG/ML 1 ML AMP IVP PRN (03:10)
[2018-01-01] MEDS ORDERED: ONDANSETRON 4 MG/2 ML VIAL IV PRN (03:10)
[2018-01-01 03:21] VITALS: BP 117/75
[2018-01-01 07:38] VITALS: BP 115/71
[2018-01-01] MEDS ORDERED: FAMOTIDINE 20 MG TAB PO SCH (09:00)
[2018-01-01] MEDS ORDERED: HYDROmorphone HCL 2 MG TAB PO ONE (10:05)
--- NOTE | 2018-01-01 10:07 | OB/GYN Progress Note ---
OB Subjective Progress Notes Subjective Pt doing ok this morning. Reports that the IV pain medication has helped dull the pain. Reports that she has had difficulty sleeping secondary to pain. Has had nothing to eat or drink since last night before 9 pm. Pain 7/10 with out medication, 3-4/10 with medication. GI: NEG Nausea, NEG Vomiting, NEG Flatus, NEG Bowel Movement : Voiding Well Pain: Moderate, Using IV Pain Meds Neurological: Headache Eyes: No Visual Disturbances OB Objective Physical Exam Vital Signs Date Time Temp Pulse Resp B/P (MAP) Pulse Ox O2 Delivery O2 Flow Rate FiO2 01/01/18 07:38 98.6 69 18 115/71 (86) 96 Room Air Intake and Output 01/02/18 07:00 # Voids 1 General Appearance: Alert/Awake/No Acute Distress Neurological: No Gross deficits Eyes: Normal Extraocular Movement & Vison, PERRLA ENT: Normal Respiratory: No Respiratory Distress Abdomen: Other (LLQ tender with guarding but no rebound. 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 Pt will be under the care of Dr. Mady Donovan. Problem Qualifiers (1) Abdominal pain: Abdominal location: left lower quadrant Qualified Codes: R10.32 - Left lower quadrant pain ROSEANNA CELAYA DO Jan 01, 2018 10:07
--- NOTE | 2018-01-01 10:11 | OB/GYN Discharge Summary ---
Discharge Summary Reason for Hosp/Final Diag: (1) Abdominal pain Status: Acute (2) Ovarian mass, left Status: Acute Hospital Course & Plan: Pt presented to the Emergency department for abdominal pain. Pt did receive 4 mg of Morphine and 2 mg of Dilaudid in the ER. Underwent CT and Ultrasound of abdomen that noted a 7.8 cm cystic mass on the Ovary. Pt has significant history for Stage 1 C Granulosa Cell tumor with staging and left ovarian conservation with adjuvant chemotherapy. Pt has had slowly increasing inhibin B since July 2017. Last collected on 09/2017 and was 120. Inhibins were collected today. Pt will be discharged to go to [facility] in [place] to be admitted by Dr. Mady Donovan for possible surgery. Pt will follow up here in [place] for any post operative care. [place] Vital Signs Vital Signs Date Time Temp Pulse Resp B/P (MAP) Pulse Ox O2 Delivery O2 Flow Rate FiO2 01/01/18 07:38 98.6 69 18 115/71 (86) 96 Room Air Weight (Pounds): 143 Weight (Ounces): 6.0 Result Diagram: 12/31/17214612/31/172146 Condition: No Change Discharge: Another Hospital ([facility]) Home Meds Discontinued Reported Medications Multivitamin With Minerals (MULTIPLE VITAMIN) 1 Each Tablet, 1 EACH PO DAILY, TAB 04/10/17 Cholecalciferol (Vitamin D3) (VITAMIN D3) 1,000 Unit Tablet, 1000 UNIT PO DAILY , TAB 04/10/17 Docusate Sodium (STOOL SOFTENER) 50 Mg/5 Ml Liquid, 50 MG PO PRN 12/14/16 Discontinued Scripts Ferrous Sulfate (FERROUS SULFATE) 325 Mg Tablet, 325 MG PO TID for 30 Days, #90 TAB 3 Refills Prov:TRISH MISHRAP[facility], ONC 06/07/17 Fluticasone Prop 50 Mcg Ns (FLONASE 50 MCG NS) 16 Gm [place].susp, 1 SPRAY NS BID for 30 Days, #1 BOT 2 Refills Prov:TRISH MISHRAP[facility], ONC 02/27/17 Pyridoxine Hcl (VITAMIN B-6) 100 Mg Tablet, 100 MG PO BID for neuropathy prevention, #60 TAB 4 Refills Prov:TRISH MISHRAP[facility], ONC 02/24/17 Prochlorperazine Maleate (Compazine) 10 Mg Tablet, 10 MG PO Q6H for Nausea, #30 TAB Prov:TADDIVYA BUSBYPASCUAL Castillo [facility], ONC 01/30/17 Lorazepam (ATIVAN) 0.5 Mg Tablet, 0.5 MG PO Q4-6H Y for NAUSEA for 30 Days, #30 TAB 0 Refills Prov:TADDIVYA BUSBYPASCUAL Castillo [facility], ONC 12/27/16 Ondansetron (ZOFRAN ODT) 8 Mg Tab.rapdis, 8 MG PO Q8H, #30 TAB 1 Refill Prov:TADTRISH J [facility], ONC 12/27/16 Ibuprofen (IBUPROFEN) 800 Mg Tablet, 1 TAB PO Q8H, #30 TAB Take with food every 8 hours. Prov:BENIGNO LAMBERT MD 12/19/15 Follow up with: [facility] [phone], Dr. Mehta [phone] Problem Qualifiers (1) Abdominal pain: Abdominal location: left lower quadrant Qualified Codes: R10.32 - Left lower quadrant pain ROSEANNA MEHTA DO Jan 01, 2018 10:11
== END 2018-01-01 10:07 | disposition home or self-care (01) ==
LOC: ER 21:20 → INTOOBSV 01-01 02:48 → OBSVTOIN 01-01 02:48 → PED 01-01 02:48
PROVIDERS: ADMIT Student in an Organized Health Care Education/Training Program; ATTEND Student in an Organized Health Care Education/Training Program
DX: N83.8 Other noninflammatory disorders of ovary, fallopian tube and broad ligament (principal); R10.32 Left lower quadrant pain
CPT/HCPCS: 36415; 74177; 76830; 81001; 82150; 83520; 83690; 85025; 86140; 86336; G0378; J1170; J2270; J2405; J7030; Q9967; 82040; 82247; 82310; 82374; 82435; 82565; 82947; 84075; 84132; 84155; 84295; 84450; 84460; 84520

== ENCOUNTER 2018-01-09 08:57 | Outpatient (RCR) | payer BC ==
[2015-12-19 12:13] VITALS: Wt 64.3 kg
[2018-01-09 09:04] VITALS: BP 107/73
[2018-01-09] MEDS ORDERED: IBUP800T37 PO (09:07)
[2018-01-09] MEDS ORDERED: CHOL10005 PO (09:07)
[2018-01-09] MEDS ORDERED: CALC500T6 PO (09:07)
--- NOTE | 2018-01-09 21:15 | ONCOLOGY FOLLOW UP NOTE ---
EVENT DATE: January 09, 2018 REASON FOR FOLLOWUP Recurrent granulosa cell tumor of ovary. INTERIM HISTORY Leanna returns to clinic for a followup visit today. She is accompanied by her [id number]. Since our last visit, she had presented with lower abdominal pain. She underwent a CT scan of the abdomen and pelvis on December 31 which revealed a complicated, 7.8 cm left ovarian/adnexal cystic structure with at least one somewhat thickened internal septation. A transvaginal ultrasound performed on the same day revealed again the complex cystic lesion in the left adnexum. Because of the pain, she was transferred urgently to [facility] in [place], and she underwent surgery with Dr. Donovan. Surgical pathology from the surgery revealed positivity for recurrent granulosa cell tumor of the sigmoid mesentery, but the left ovary showed no findings consistent with recurrent tumor. An additional mesenteric tumor excision was negative for recurrent tumor, as well as biopsy of the right pelvis. Leanna has subsequently returned home. Symptomatically, she is doing much better today. She reports no significant postoperative pain. She has many questions about her recurrent granulosa cell tumor and management moving forward. She has been started on letrozole by Dr. Donovan, and she seems to be tolerating this well with the exception of some modest hot flashes and some modest aches and pains. REVIEW OF SYSTEMS Otherwise negative in all systems reviewed. ONCOLOGY HISTORY 1. 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 a. Initial presentation with dysfunctional uterine bleeding after having had a healthy baby girl about one year prior. b. Patient was noted to have palpable pelvic mass on physical exam. c. November 04, 2016: CT scan of pelvis reveals an amorphous, ill defined, multiseptated cystic mass within the right adnexa, likely arising from the right ovary. This was initially felt to potentially represent a complex endometrioma. Surgery was recommended. d. Patient was referred to Dr. Mady Donovan at [facility] in [place]. e. November 23, 2016: Surgical resection. 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 Omentectomy specimen is negative for malignancy. Peritoneal biopsies to include right pelvic, left pelvic, anterior cul-de-sac, posterior cul-de-sac, right gutter and left gutter were negative for malignancy. There was biopsy of a left ovarian cyst that was benign. Left salpingectomy showed benign findings. Hysterectomy specimen showed chronic cervicitis and squamous metaplasia of the cervix, benign proliferative endometrium, and no pathologic findings in the myometrium. Six benign lymph nodes were dissected from the right pelvis, two benign lymph nodes were dissected from the periaortic region, and four benign lymph nodes were resected from the left pelvis. f. December 2016 to February 2017: Three cycles of adjuvant BEP chemotherapy. g. April 26, 2017: CT scan of the abdomen and pelvis reveals post surgical changes from hysterectomy and apparent right oophorectomy; very small amount of free pelvic fluid. Shotty retroperitoneal lymph nodes and small bilateral inguinal lymph nodes. h. December 2017, presentation with lower abdominal pain. CT scan on December 31 reveals cystic mass, thought potentially of ovarian/adnexal origin. Transvaginal ultrasound reveals the cystic mass as well. i. Status post surgical resection of presumed granulosa cell tumor recurrence. Surgical pathology reveals positivity of mesenteric mass for recurrent granulosa cell tumor, but additional tissues including left ovary showed no evidence of granulosa cell tumor. PAST MEDICAL HISTORY The patient is otherwise healthy. SOCIAL HISTORY The patient is a nonsmoker, nondrinker. There is no history of illicit drug use. FAMILY HISTORY There is a history of vulvar carcinoma in her maternal aunt, as well as breast cancer in another maternal aunt. She believes this had been diagnosed about age 51. CURRENT MEDICATIONS 1. Vitamin D3. 2. Flonase p.r.n. 3. Vitamin B6. 4. Letrozole. ALLERGIES 1. PENICILLINS. 2. CEFACLOR. PHYSICAL EXAMINATION VITAL SIGNS: Temperature is 97.6, blood pressure 107/73, heart rate of 73, respirations 16, oxygen saturation is 100% on room air. Weight is 64.3 kg. GENERAL: Patient is alert and oriented times three, no apparent distress, sitting in the exam room chair. She appears healthy. She is interactive and pleasant. HEENT: Anicteric sclerae. NEUROLOGIC: Grossly nonfocal. Rest of physical exam is deferred for extensive discussion today. LABORATORY STUDIES Reviewed per the [facility] record including inhibin and estradiol levels. Multiple laboratory studies were shared with the patient today via copies from the [facility] record. IMAGING AND PATHOLOGY Please oncology history. 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 I had a lengthy and in- depth discussion with Leanna today. We spent time discussing her recent presentation, workup with imaging and laboratories here in [place], and subsequent surgical resection with Dr. Donovan at [facility] in [place]. Leanna has had a mesenteric recurrence of her granulosa cell tumor despite aggressive surgical and adjuvant chemotherapy. We reviewed her surgical pathology in detail. We also reviewed her preoperative laboratory trends in detail. She is currently on letrozole, and she seems to be tolerating this quite well. Leanna is understandably concerned about her recurrence and how this could have happened. She is status post initial surgical resection and three cycles of adjuvant bleomycin, etoposide, and cisplatin chemotherapy. We had been checking inhibin and estradiol levels as part of surveillance. The levels themselves have been within physiologic range throughout, but there had been a modest increase in the inhibin-B level at the end of September. Remarkably, her inhibin levels which were drawn at the time of her acute presentation with abdominal pain (preoperative laboratory studies) reveal a negligible inhibin-B level and an inhibin-A of 9.8. As discussed today, although these laboratories had been routinely checked in the adjuvant setting, I am concerned that using inhibin levels for ongoing surveillance may be fraught with problems. She understands that with negligible markers of this sort during a recurrence will not allow us to use low/negligible levels for confidence in lack of recurrence, or for response to therapy. On the other hand, if there is a persistent trend of worsening, they may be helpful as she now is without ovaries, and I would otherwise expect inhibin levels to return to negligible levels. We spent time today reviewing inhibin levels in detail. We also discussed methods of surveillance in the future. I would agree with starting aromatase inhibitor, which she does seem to be tolerating without significant difficulty. We talked about the possible utility of additional chemotherapy, as well. I would like to continue following the patient along with Dr. Santos at the [facility] in [place] as well as Dr. Donovan in gynecologic oncology at [facility] in [place]. We also discussed the possibility of reaching out for another opinion, and Leanna is in favor of this. As discussed today, I would like to do some research and discuss her situation further with colleagues. I will tentatively plan to see her back in clinic in the next one to two months. I will refer her back to see Dr. Santos in [place]. Leanna had multiple insightful and appropriate questions for me today. I believe I answered all her questions to her satisfaction. I spent a total of 45 minutes of time [id number] with her today, and 40 minutes of this was spent in direct counseling and coordination of care. WENDIE
[2018-01-15] MEDS ORDERED: LETR2.5T4 PO (15:42)
== END 2018-01-10 11:07 | disposition home or self-care (01) ==
LOC: ONC 08:57
PROVIDERS: ATTEND Internal Medicine Medical Oncology
DX: C56.1 Malignant neoplasm of right ovary (principal); Z79.811 Long term (current) use of aromatase inhibitors; Z92.21 Personal history of antineoplastic chemotherapy
CPT/HCPCS: 99212

== ENCOUNTER 2018-02-13 10:14 | Emergency (ER) | payer BC ==
[2015-12-19 12:13] VITALS: Wt 61.7 kg
[~2018-02-13 10:14] MED LIST changes: +CALC500T6 PO; +LETR2.5T4 PO
--- NOTE | 2018-02-13 10:56 | ER Report ---
History and Physical Time Seen By MD: 10:56 Hx. of Stated Complaint: abd pain left sided HPI/ROS CHIEF COMPLAINT: Left lower quadrant abdominal pain HISTORY OF PRESENT ILLNESS: 37-year-old female patient presents to emergency room with complaint of left lower quadrant abdominal pain. Patient states she's been having pain starting last night. Patient states that she had been in [place] at the [facility]. She states she carried her baby a fair amount. When she returned home she said she had significant abdominal pain. She states the pain was a 7-8 out of 10. She states she was able to go to bed when she woke up this morning his pain was improved. She states that currently her pain is a 3-4 out of 10. She denies any nausea, vomiting or diarrhea. She states she is able to eat today without any problems. REVIEW OF SYSTEMS: Respiratory: No cough, no dyspnea. Cardiovascular: No chest pain, no palpitations. Gastrointestinal: As noted above Musculoskeletal: No back pain. Allergies: Coded Allergies: Penicillins (Verified Allergy, Intermediate, HIVES, 12/31/17) REPORTS HAVING BEEN TOLD OF REACTION CHILD, SOMEWHAT UNSURE OF REACTION. 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 Patient has surgical history of hysterectomy with initially the right ovary removed and then in December of this year the left ovary. Reviewed Nurses Notes: Yes Hx Smoking: No Smoking Status: Never Smoker Exposure to Second Hand Smoke?: No Hx Substance Use Disorder: No Hx Alcohol Use: No Constitutional Vital Sign - Last 24 Hours 02/13/18 02/13/18 02/13/18 02/13/18 10:24 10:25 10:29 10:30 Temp 98.6 Pulse 77 81 Resp 11 B/P (MAP) 127/87 127/87 (100) 121/96 (104) Pulse Ox 95 96 O2 Delivery Room Air 02/13/18 02/13/18 02/13/18 02/13/18 10:45 10:59 11:00 11:14 Pulse 77 74 B/P (MAP) 120/84 (96) 121/88 (99) Pulse Ox 97 96 02/13/18 02/13/18 02/13/18 02/13/18 11:30 11:35 12:09 12:20 Pulse 65 66 B/P (MAP) ???/??? (1665) 121/87 (98) Pulse Ox 95 97 02/13/18 02/13/18 02/13/18 02/13/18 12:30 12:35 12:50 13:00 Pulse 75 70 B/P (MAP) 118/80 (93) 122/84 (97) Pulse Ox 90 98 02/13/18 02/13/18 02/13/18 13:05 13:20 13:42 Pulse 76 73 85 Resp 16 B/P (MAP) 138/85 (102) Pulse Ox 98 97 92 O2 Delivery Room Air Physical Exam General Appearance: The patient is alert, has no immediate need for airway protection and no current signs of toxicity. ENT: Tympanic membranes are pearly-quiroz, auditory canals are patent, mucous membranes are moist. Respiratory: Chest is non tender, lungs are clear to auscultation. Cardiac: regular rate and rhythm Gastrointestinal: Abdomen is soft and tender in the left lower quadrant, no masses, bowel sounds normal. Musculoskeletal: Neck: Neck is supple and non tender. Extremities have full range of motion and are non tender. Skin: No rashes or lesions. DIFFERENTIAL DIAGNOSIS: After history and physical exam differential diagnosis was considered for abdominal pain including but not limited to appendicitis, cholecystitis, gastritis and urinary tract infection. Included in the differential is recurrence of cancer, patient had a recent ovary removed with cancer. Medical Decision Making Data Points Result Diagram: 02/13/18 1030 02/13/18 1030 Laboratory Hematology Test 02/13/18 10:02/13/18 11:30 Red Blood Count 5.29 M/uL (4.17-5.56) Mean Corpuscular Volume 85.7 fL (80.0-96.0) Mean Corpuscular Hemoglobin 29.0 pg (26.0-33.0) Mean Corpuscular Hemoglobin Concent 33.9 g/dL (32.0-36.0) Red Cell Distribution Width 13.7 % (11.5-14.5) Mean Platelet Volume 8.3 fL (7.2-11.1) Neutrophils (%) (Auto) 64.3 % (39.4-72.5) Lymphocytes (%) (Auto) 28.0 % (17.6-49.6) Monocytes (%) (Auto) 6.3 % (4.1-12.4) Eosinophils (%) (Auto) 0.8 % (0.4-6.7) Basophils (%) (Auto) 0.6 % (0.3-1.4) Nucleated RBC Relative Count (auto) 0.0 /100WBC Neutrophils # (Auto) 4.1 K/uL (2.0-7.4) Lymphocytes # (Auto) 1.8 K/uL (1.3-3.6) Monocytes # (Auto) 0.4 K/uL (0.3-1.0) Eosinophils # (Auto) 0.0 K/uL (0.0-0.5) Basophils # (Auto) 0.0 K/uL (0.0-0.1) Nucleated RBC Absolute Count (auto) 0.00 K/uL Sodium Level 139 mmol/L (137-145) Potassium Level 3.8 mmol/L (3.5-5.0) Chloride Level 104 mmol/L (98-107) Carbon Dioxide Level 23 mmol/L (22-31) Blood Urea Nitrogen 19 mg/dl (7-18) Creatinine 0.90 mg/dl (0.52-1.04) Glomerular Filtration Rate Calc > 60.0 Random Glucose 87 mg/dl (75-110) Calcium Level 9.1 mg/dl (8.4-10.2) Total Bilirubin 0.2 mg/dl (0.2-1.3) Aspartate Amino Transf (AST/SGOT) 19 U/L (0-35) Alanine Aminotransferase (ALT/SGPT) 12 U/L (0-56) Alkaline Phosphatase 61 U/L (0-126) C-Reactive Protein < 0.5 mg/dl (<1.0) Total Protein 8.2 g/dl (6.3-8.2) Albumin 4.8 g/dl (3.5-5.0) Urine Color Straw Urine Clarity Clear Urine pH 5.0 pH (4.8-9.5) Urine Specific [place] 1.006 Urine Protein Negative mg/dL (NEGATIVE) Urine Glucose (UA) Negative mg/dL (NEGATIVE) Urine Ketones Negative mg/dL (NEGATIVE) Urine Blood Negative (NEGATIVE) Urine Nitrite Negative (NEGATIVE) Urine Bilirubin Negative (NEGATIVE) Urine Urobilinogen Negative mg/dL (0.2-1.9) Urine Leukocyte Esterase Negative (NEGATIVE) Urine RBC None /HPF (0-2/HPF) Urine WBC <1 /HPF (0-5/HPF) Urine Squamous Epithelial Cells Many /LPF (</=FEW) Urine Bacteria Few /HPF (NONE-FEW) Urine Mucus None /HPF (NONE-FEW) Chemistry Test 02/13/18 10:30 02/13/18 11:30 White Blood Count 6.3 k/uL (4.5-11.0) Red Blood Count 5.29 M/uL (4.17-5.56) Hemoglobin 15.4 g/dL (12.0-16.0) Hematocrit 45.3 % (34.0-47.0) Mean Corpuscular Volume 85.7 fL (80.0-96.0) Mean Corpuscular Hemoglobin 29.0 pg (26.0-33.0) Mean Corpuscular Hemoglobin Concent 33.9 g/dL (32.0-36.0) Red Cell Distribution Width 13.7 % (11.5-14.5) Platelet Count 281 K/uL (150-450) Mean Platelet Volume 8.3 fL (7.2-11.1) Neutrophils (%) (Auto) 64.3 % (39.4-72.5) Lymphocytes (%) (Auto) 28.0 % (17.6-49.6) Monocytes (%) (Auto) 6.3 % (4.1-12.4) Eosinophils (%) (Auto) 0.8 % (0.4-6.7) Basophils (%) (Auto) 0.6 % (0.3-1.4) Nucleated RBC Relative Count (auto) 0.0 /100WBC Neutrophils # (Auto) 4.1 K/uL (2.0-7.4) Lymphocytes # (Auto) 1.8 K/uL (1.3-3.6) Monocytes # (Auto) 0.4 K/uL (0.3-1.0) Eosinophils # (Auto) 0.0 K/uL (0.0-0.5) Basophils # (Auto) 0.0 K/uL (0.0-0.1) Nucleated RBC Absolute Count (auto) 0.00 K/uL Glomerular Filtration Rate Calc > 60.0 Calcium Level 9.1 mg/dl (8.4-10.2) Total Bilirubin 0.2 mg/dl (0.2-1.3) Aspartate Amino Transf (AST/SGOT) 19 U/L (0-35) Alanine Aminotransferase (ALT/SGPT) 12 U/L (0-56) Alkaline Phosphatase 61 U/L (0-126) C-Reactive Protein < 0.5 mg/dl (<1.0) Total Protein 8.2 g/dl (6.3-8.2) Albumin 4.8 g/dl (3.5-5.0) Urine Color Straw Urine Clarity Clear Urine pH 5.0 pH (4.8-9.5) Urine Specific [place] 1.006 Urine Protein Negative mg/dL (NEGATIVE) Urine Glucose (UA) Negative mg/dL (NEGATIVE) Urine Ketones Negative mg/dL (NEGATIVE) Urine Blood Negative (NEGATIVE) Urine Nitrite Negative (NEGATIVE) Urine Bilirubin Negative (NEGATIVE) Urine Urobilinogen Negative mg/dL (0.2-1.9) Urine Leukocyte Esterase Negative (NEGATIVE) Urine RBC None /HPF (0-2/HPF) Urine WBC <1 /HPF (0-5/HPF) Urine Squamous Epithelial Cells Many /LPF (</=FEW) Urine Bacteria Few /HPF (NONE-FEW) Urine Mucus None /HPF (NONE-FEW) Urinalysis Test 02/13/18 11:30 Urine Color Straw Urine Clarity Clear Urine pH 5.0 pH (4.8-9.5) Urine Specific [place] 1.006 Urine Protein Negative mg/dL (NEGATIVE) Urine Glucose (UA) Negative mg/dL (NEGATIVE) Urine Ketones Negative mg/dL (NEGATIVE) Urine Blood Negative (NEGATIVE) Urine Nitrite Negative (NEGATIVE) Urine Bilirubin Negative (NEGATIVE) Urine Urobilinogen Negative mg/dL (0.2-1.9) Urine Leukocyte Esterase Negative (NEGATIVE) Urine RBC None /HPF (0-2/HPF) Urine WBC <1 /HPF (0-5/HPF) Urine Squamous Epithelial Cells Many /LPF (</=FEW) Urine Bacteria Few /HPF (NONE-FEW) Urine Mucus None /HPF (NONE-FEW) EKG/Imaging Imaging CT abdomen and pelvis with IV contrast Indication: Left lower abdominal pain. History of ovarian cancer. Comparison: 2017.. Technique: Axial CT images were obtained through the abdomen and pelvis during injection of nonionic iodinated intravenous contrast. Reformatted coronal and sagittal images were also obtained. One of the following dose optimization techniques was utilized in the performance of this exam: Automated exposure control; adjustment of the mA and/ or kV according to the patient's size; or use of an iterative reconstruction technique. Specific details can be referenced in the facility's radiology CT exam operational policy. Contrast: 75 ml of Isovue-370 IV contrast. Findings: Lower lung chaudhry: Limited views lower lung field are unremarkable. Liver: No focal parenchymal abnormality of the liver. Biliary: Gallbladder appears unremarkable as well as the intra and extra hepatic biliary system. Pancreas: Normal appearance. Spleen: Normal appearance. Adrenal glands: Unremarkable. Kidneys / retroperitoneum: No evidence of nephrolithiasis or hydronephrosis. No focal abnormality. Bowel / peritoneum / mesenteries: The visualized gastrointestinal tract, including the appendix, within normal limits but the stomach is unremarkable. No free air, free fluid, fluid collections or areas of inflammation. Small umbilical hernia containing fat. Lymph node assessment: No pathologic adenopathy identified. Pelvic structures: Status post hysterectomy and oophorectomy. By history there is a small amount of ovarian tissue remaining. In the left adnexa region there is a cystic lesion with septations. This measures 5.4 x 5.7 x 5.7 cm and is similar to the previous examination. There is some soft tissue on the lateral superior aspect. The Hounsfield range from 19-35. No adnexal masses. The remaining pelvic structures visualized within normal limits. Vessels: No significant atherosclerotic calcifications seen throughout a nonaneurysmal abdominal aorta and branches. Musculoskeletal / Body wall: No acute or aggressive osseous abnormality. IMPRESSION: 1. There is a persistent mildly complex cystic lesion in the left adnexa region. This could represent complex residual ovarian cyst however this is not significantly changed from previous examination. On this exam cannot exclude a cystadenoma or cystadenocarcinoma. 2. The remainder of the exam is unremarkable without indication of acute abnormality. Report Dictated By: Tanner Hayes at 02/13/2018 12:26 PM Report E-Signed By: Tanner Hayes at 02/13/2018 12:34 PM ED Course/Re-evaluation ED Course Patient was admitted to exam room, history and physical were obtained. Differential diagnoses were considered. On examination patient had tenderness in the left lower quadrant. With her history of cancer and at the request of her oncologist a CT scan of abdomen and pelvis was done. A CBC, CMP, urinalysis was also done. Lab results were completely unremarkable. CT scan showed a residual cyst consistent with what was seen in the past CT scan. I am unsure whether this is a recurrence of cancer or if this is a persistent cyst. I did contact [facility] and spoke with the oncologist, who felt that the patient can be managed with pain medication for the time being, and follow-up with her oncologist on has produce a schedule. I discussed this with the patient. She verbalized understanding and agreement. At this time patient is having significant amounts of pain, she rates it 78 out of 10. Patient was given a dose of 1 mg of Dilaudid. She states she did have significant improvement and comfort. We'll go ahead and discharge her home. We were able to make copies of CT scans for the patient take to her oncologist. Patient verbalized understanding and agreement with plan. Decision to Disposition Date: Feb 13, 2018 Decision to Disposition Time: 13:21 Depart Departure Latest Vital Signs Vital Signs Date Time Temp Pulse Resp B/P (MAP) Pulse Ox O2 Delivery O2 Flow Rate FiO2 02/13/18 13:42 85 16 138/85 (102) 92 Room Air 02/13/18 10:24 98.6 Impression: Primary Impression: Abdominal pain Condition: Improved Disposition: HOME OR SELF-CARE New Scripts Oxycodone Hcl (OXYCODONE HCL) 5 Mg Capsule 5 MG PO Q4-6H Y for PAIN, #30 CAPSULE Prov: ZECHARIAH GOMEZ 02/13/18 Patient Instructions: Abdominal Pain (ED) Additional Instructions: Limit activity by pain. Continue with your normal medications. Follow up with Dr. Santos on as scheduled. Get plenty of rest. You may eat a normal diet. Problem Qualifiers Primary Impression: Abdominal pain Abdominal location: left lower quadrant Qualified Codes: R10.32 - Left lower quadrant pain ZECHARIAH GOMEZ Feb 13, 2018 10:56
[2018-02-13 11:13] LABS: PLATELET COUNT, AUTOMATED 281 K/uL (150-450)
[2018-02-13] MEDS ORDERED: IOPAMIDOL 76% 75 ML INFUS BTL 75 ML ONE (11:27)
[2018-02-13] MEDS ORDERED: IOPAMIDOL 76% 50 ML INFUS BTL 0 ML ONE (12:05)
--- NOTE | 2018-02-13 12:39 | RADIOLOGY IMAGING REPORT ---
FACILITY: PATIENT NAME: Leanna Pettit : 1980 MR: [id number] V: [id number] EXAM DATE: ORDERING PHYSICIAN: ZECHARIAH GOMEZ TECHNOLOGIST: [place] [facility] [place] Leanna Pettit : 1980 Visit/Account:[id number] Date of Sevice: 02/13/2018 CT abdomen and pelvis with IV contrast Indication: Left lower abdominal pain. History of ovarian cancer. Comparison: 2017.. Technique: Axial CT images were obtained through the abdomen and pelvis during injection of nonioni c iodinated intravenous contrast. Reformatted coronal and sagittal images were also obtained. One of the following dose optimization techniques was utilized in the performance of this exam: Autom ated exposure control; adjustment of the mA and/or kV according to the patient's size; or use of an i terative reconstruction technique. Specific details can be referenced in the facility's radiology C T exam operational policy. Contrast: 75 ml of Isovue-370 IV contrast. Findings: Lower lung chaudhry: Limited views lower lung field are unremarkable. Liver: No focal parenchymal abnormality of the liver. Biliary: Gallbladder appears unremarkable as well as the intra and extra hepatic biliary system. Pancreas: Normal appearance. Spleen: Normal appearance. Adrenal glands: Unremarkable. Kidneys / retroperitoneum: No evidence of nephrolithiasis or hydronephrosis. No focal abnormality. Bowel / peritoneum / mesenteries: The visualized gastrointestinal tract, including the appendix, with in normal limits but the stomach is unremarkable. No free air, free fluid, fluid collections or areas of inflammation. Small umbilical hernia containin g fat. Lymph node assessment: No pathologic adenopathy identified. Pelvic structures: Status post hysterectomy and oophorectomy. By history there is a small amount o f ovarian tissue remaining. In the left adnexa region there is a cystic lesion with septations. This measures 5.4 x 5.7 x 5.7 cm and is similar to the previous examination. There is some soft tissue on the lateral superior aspect. The Houn[place]field range from 19-35. No adnexal masses. The remaining pelvic structures visualized within normal limits. Vessels: No significant atherosclerotic calcifications seen throughout a nonaneurysmal abdominal aort a and branches. Musculoskeletal / Body wall: No acute or aggressive osseous abnormality. IMPRESSION: 1. There is a persistent mildly complex cystic lesion in the left adnexa region. This could represent complex residual ovarian cyst however this is not significantly changed from previous examination. O n this exam cannot exclude a cystadenoma or cystadenocarcinoma. 2. The remainder of the exam is unremarkable without indication of acute abnormality. Report Dictated By: Tanner Hayes at 02/13/2018 12:26 PM Report E-Signed By: Tanner Hayes at 02/13/2018 12:34 PM WSN:[id number]
[2018-02-13] MEDS ORDERED: HYDROmorphone* 1 MG/ML 1 MG/ML ML IVP ONE (13:15)
[2018-02-13] MEDS ORDERED: ONDANSETRON 4 MG/2 ML VIAL IVP ONE (13:15)
[2018-02-13] MEDS ORDERED: OXYC5CAP21 PO (13:17)
[2018-02-13 13:42] VITALS: BP 138/85
== END 2018-02-13 13:48 | disposition home or self-care (01) ==
LOC: ER 10:25
DX: R10.32 Left lower quadrant pain (principal)
CPT/HCPCS: 74177; 81001; 85025; 86140; 96374; 96375; 99283; J1170; J2405; Q9967; 82040; 82247; 82310; 82374; 82435; 82565; 82947; 84075; 84132; 84155; 84295; 84450; 84460; 84520

== ENCOUNTER → 2018-05-17 | Outpatient (CLI) | payer BC ==
[2015-12-19 12:13] VITALS: BMI 26.7
[~2018-05-17] MED LIST changes: +OXYC5CAP21 PO
== END ==
LOC: LAB 10:01
PROVIDERS: ATTEND Student in an Organized Health Care Education/Training Program
DX: N89.8 Other specified noninflammatory disorders of vagina (principal)
CPT/HCPCS: 87210

== ENCOUNTER → 2019-03-14 | Outpatient (CLI) | payer BC ==
[2015-12-19 12:13] VITALS: BMI 26.7
--- NOTE | 2019-03-14 18:07 | RADIOLOGY IMAGING REPORT ---
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 Menopause. High risk medicat ion. Comparison: None available. LUMBAR SPINE: The bone mineral density (BMD) measured from L1-L4 correlates with a Z-score 0.1 and a T-score of -0. 1 which is Normal as defined by the World Health Organization. The corresponding risk of fracture in the lumbar spine is Not increased compared with a young adult reference population. HIP: Bone mineral density (BMD) measured in the Left total hip region correlates with a Z-score -0.1 and a T-score of -0.4 which is Normal as defined by the World Health Organization. The corresponding risk of fracture in the hip is Not increased compared with a young adult reference population. Bone mineral density (BMD) measured in the Femoral Neck region measures 0.928 g/cm2. T-score is -0.8 . Impression: 1. Lumbar spine: Normal. 2. Left Total Hip: Normal. 3. Femoral Neck: Bone Mineral Density is 0.928 g/cm2. Within lower normal range. The next DEXA scan of this patient should include the following sites: L1-L4 and the left hip. FRAX? WHO Fracture Risk Assessment Tool link: <http://www.shef.ac.uk/FRAX/tool.jsp?[email or web address]> PLEASE NOTE: 1) The World Health Organization defines low BMD as follows: T-score Normal > -1 Osteopenia < -1 and > -2.5 Osteoporosis < -2.5 without fractures Established osteoporosis < -2.5 with fractures 2) In general, you may wish to consider: Diagnosis Treatment Follow-up DEXA Normal BMD Prevention 2-3 years Osteopenia Prevention/therapy 1-2 years Osteoporosis Therapy Yearly 3) Fracture risk estimated from the T-score is more accurate for vertebral fractures (often spontane ous) than for hip fractures. Report Dictated By: Marcio Carter MD at 03/14/2019 5:57 PM Report E-Signed By: Marcio Carter MD at 03/14/2019 5:59 PM WSN:[id number]
== END ==
LOC: RAD 07:20
PROVIDERS: ATTEND Specialist
DX: Z79.899 Other long term (current) drug therapy (principal); C56.1 Malignant neoplasm of right ovary
CPT/HCPCS: 77080